=== PATIENT | female | born 1960 | race Caucasian/White ===

== ENCOUNTER 2016-05-20 19:40 | Emergency (ER) | payer SELFPAY | END 2016-05-20 20:55 | disposition home or self-care (01) | LOC: ER 19:40 | DX: G89.29 Other chronic pain (principal); M54.9 Dorsalgia, unspecified; K08.89 Other specified disorders of teeth and supporting structures; Z88.5 Allergy status to narcotic agent; Z88.8 Allergy status to other drugs, medicaments and biological substances; Z88.2 Allergy status to sulfonamides; Z88.6 Allergy status to analgesic agent | CPT/HCPCS: 99283 ==

== ENCOUNTER 2016-08-08 20:34 | Emergency (ER) | payer SELFPAY | END 2016-08-08 21:11 | disposition home or self-care (01) | LOC: ER 20:34 | DX: S60.411A Abrasion of left index finger, initial encounter (principal); M54.5 Low back pain; Z88.5 Allergy status to narcotic agent; Z88.6 Allergy status to analgesic agent; Z88.0 Allergy status to penicillin; Z88.2 Allergy status to sulfonamides; Z88.1 Allergy status to other antibiotic agents; X58.XXXA Exposure to other specified factors, initial encounter | CPT/HCPCS: 90471; 90714; 99283; A9270-GY ==

== ENCOUNTER 2016-08-13 20:42 | Emergency (ER) | payer SELFPAY | END 2016-08-13 21:04 | disposition home or self-care (01) | LOC: ER 20:42 | DX: M54.5 Low back pain (principal); Z88.5 Allergy status to narcotic agent; Z88.6 Allergy status to analgesic agent; Z88.0 Allergy status to penicillin; Z88.2 Allergy status to sulfonamides; Z88.8 Allergy status to other drugs, medicaments and biological substances | CPT/HCPCS: 99283; A9270-GY ==

== ENCOUNTER 2016-08-21 15:39 | Emergency (ER) | payer SELFPAY | END 2016-08-21 17:03 | disposition home or self-care (01) | LOC: ER 15:39 | DX: K08.89 Other specified disorders of teeth and supporting structures (principal); F41.9 Anxiety disorder, unspecified; Z88.0 Allergy status to penicillin; Z88.1 Allergy status to other antibiotic agents; Z88.2 Allergy status to sulfonamides; Z88.5 Allergy status to narcotic agent; Z88.6 Allergy status to analgesic agent; Z88.8 Allergy status to other drugs, medicaments and biological substances | CPT/HCPCS: 99282 ==